=== PATIENT | female | born 1995 | race Caucasian/White ===

== ENCOUNTER 2016-10-10 09:42 | Emergency (ER) | payer OTHER ==
[2016-10-10 10:30] VITALS: BP 110/58
--- NOTE | 2016-10-10 10:47 | UC ---
Respiratory Complaint HPI - HPI Summary HPI Summary: productive cough x 5 days + chest congestion, wheezing , chills, no sore throat , + nasal congestion and sinus pressure - History of Current Complaint Chief Complaint: UCRespiratory Stated Complaint: COUGH,SINUS PRESSURE Time Seen by Provider: 10/10/16 10:31 Hx Obtained From: Patient Hx Last Menstrual Period: 09/03/16 Onset/Duration: Gradual Onset, Lasting Days - 5, Still Present Severity Initially: Moderate Severity Currently: Moderate Character: Cough: Productive - yellow Aggravating Factors: Exertion, Deep Breaths Alleviating Factors: Nothing Associated Signs And Symptoms: Positive: Wheezing, URI, Nasal Congestion, Sinus Discomfort - Allergies/Home Medications Allergies/Adverse Reactions: Allergies Allergy/AdvReac Type Severity Reaction Status Date / Time Azithromycin [From Zithromax] AdvReac GI Upset Verified 10/10/16 10:27 Home Medications: Home Medications Albuterol HFA INHALER* [Ventolin HFA Inhaler*] 1 - 2 puff INH Q4H PRN 10/10/16 [ History Confirmed 10/10/16] Fluticasone HFA 110 mcg(NF) [Flovent HFA 110 mcg(NF)] 2 puff INH DAILY 10/10/16 [History Confirmed 10/10/16] Multivitamins/Minerals TAB* [Thera M Plus TAB*] 1 tab PO DAILY 10/10/16 [ History Confirmed 10/10/16] traZODone TAB* [Desyrel TAB*] 200 mg PO BEDTIME 10/10/16 [History Confirmed ] PMH/Surg Hx/FS Hx/Imm Hx Endocrine History Of: Denies: Diabetes, Thyroid Disease, Hyperthyroidism, Hypothyroidism, Dyslipidemia Cardiovascular History Of: Denies: Cardiac Disorders, Hypertension, Pacemaker/ICD, Myocardial Infarction , Congestive Heart Failure, Atrial Fibrillation, Deep Vein Thrombosis, Bleeding Disorders Respiratory History Of: Reports: Asthma, Bronchitis Denies: COPD, Pneumonia, Pulmonary Embolism GI/ History Of: Denies: Gastroesophageal Reflux, Ulcer, Gastrointestinal Bleed, Gall Bladder Disease, Kidney Stones, Diverticulitis, Renal Disease, Urosepsis Neurological History Of: Denies: TIA, CVA, Dementia, Seizures, Migraine Psychological History Of: Reports: Depression Denies: Anxiety, Bipolar Disorder, Schizophrenia, Post Traumatic Stress Disorder Cancer History Of: Denies: Lung Cancer, Colorectal Cancer, Breast Cancer, Prostate Cancer, Cervical Cancer Other History Of: Negative For: HIV, Hepatitis B, Hepatitis C - Surgical History Surgical History: Yes Surgery Procedure, Year, and Place: T&A. TUBES IN EARS AGE 1. MIGRAINES - Family History Known Family History: Positive: None Negative: Diabetes Family History: no cardio-vascular issues in family lineage - Social History Alcohol Use: Occasionally Substance Use Type: None Smoking Status (MU): Heavy Every Day Tobacco Smoker Type: Cigarettes Amount Used/How Often: 1/2 PPD Length of Time of Smoking/Using Tobacco: 1 YR - Immunization History Most Recent Influenza Vaccination: Not the Season Review of Systems Constitutional: Chills, Fatigue Skin: Negative Eyes: Negative ENT: Nasal Discharge Respiratory: Cough Cardiovascular: Negative Gastrointestinal: Negative Genitourinary: Negative All Other Systems Reviewed And Are Negative: Yes Physical Exam Triage Information Reviewed: Yes Appearance: Well-Appearing, No Pain Distress, Well-Nourished Vital Signs: Initial Vital Signs Temp 98 F 10/10/16 10:22 Pulse 80 10/10/16 10:22 Resp 16 10/10/16 10:22 BP 110/58 10/10/16 10:22 Pulse Ox 99 10/10/16 10:22 Vital Signs Reviewed: Yes Eyes: Positive: Conjunctiva Clear ENT: Positive: Normal ENT inspection, Hearing grossly normal, Pharyngeal erythema, Nasal congestion, Nasal drainage Neck exam: Normal Neck: Positive: Supple, Nontender, No Lymphadenopathy Respiratory: Positive: Chest non-tender, No respiratory distress, No accessory muscle use, Wheezing Cardiovascular: Positive: RRR, No Murmur, Pulses Normal UC Diagnostic Evaluation - Laboratory O2 Sat by Pulse Oximetry: 99 Respiratory Course/Dx - Differential Dx/Diagnosis Provider Diagnoses: bronchitis Discharge - Discharge Plan Condition: Stable Disposition: HOME Prescriptions: Amoxicillin/Clavulanate TAB* [Augmentin TAB 875*] 875 mg PO BID #20 tab Guaifenesin-Codeine [Cheratussin AC] 10 ml PO Q8H #120 ml MDD 30 ML Ibuprofen TAB* [Motrin TAB* 600 MG] 600 mg PO Q8H PRN #20 tab PRN Reason: Fever Patient Education Materials: Acute Bronchitis (ED) Referrals: Lupe Lopez PA [Primary Care Provider] - 7 Days
== END 2016-10-10 11:00 | disposition home or self-care (01) ==
LOC: UCCORT 09:42
DX: J40 Bronchitis, not specified as acute or chronic (principal); Z32.02 Encounter for pregnancy test, result negative; Z88.1 Allergy status to other antibiotic agents; F17.210 Nicotine dependence, cigarettes, uncomplicated
CPT/HCPCS: 81025; 99212; G0463

== ENCOUNTER 2016-10-23 09:40 | Emergency (ER) | payer SELFPAY ==
[2016-10-23 11:22] VITALS: BP 112/63
--- NOTE | 2016-10-23 12:09 | RAD ---
INDICATION: Several weeks cough. Bronchitis. COMPARISON: June 12, 2014 TECHNIQUE: Dual energy PA and routine lateral views of the chest were obtained. REPORT: Clear lungs and pleural spaces. Negative for pneumothorax. The heart, pulmonary vasculature, and mediastinal contours are unremarkable. Unremarkable osseous structures and soft tissue contours. IMPRESSION: No evidence for acute intrathoracic disease.
--- NOTE | 2016-10-23 12:11 | UC ---
Respiratory Complaint HPI - HPI Summary HPI Summary: coughing, wheezing, tightness in chest since Oct 04. Seen here on the , Rx course Augmentin and albuterol inhaler/nebulizer. She feels liek she is still wheezing and coughing up phlegm. No fever. No vomiting or diarrhea. She does smoke cigarettes. Out of her albuterol. Wants prednisone, which has helped in past. - History of Current Complaint Chief Complaint: UCRespiratory Stated Complaint: RECHECK BRONCHITIS Time Seen by Provider: 10/23/16 11:32 Hx Obtained From: Patient Hx Last Menstrual Period: 10/16/16 Onset/Duration: Gradual Onset Timing: Constant Severity Initially: Moderate Severity Currently: Moderate Character: Sputum Description: - yellow Aggravating Factors: Exertion, Recumbent Position Alleviating Factors: Bronchodilator Associated Signs And Symptoms: Positive: Dyspnea, Wheezing, URI, Nasal Congestion, Hoarseness, Sinus Discomfort. Negative: Fever, Chills, Hemoptysis - Risk Factors Pulmonary Embolism Risk Factors: Negative Cardiac Risk Factors: Negative Pseudomonas Risk Factors: Negative Tuberculosis Risk Factors: Negative - Allergies/Home Medications Allergies/Adverse Reactions: Allergies Allergy/AdvReac Type Severity Reaction Status Date / Time Azithromycin [From Zithromax] AdvReac GI Upset Verified 10/23/16 11:15 Home Medications: Home Medications guaiFENesin ER TAB [Mucinex*] 600 mg PO BID PRN 10/23/16 [History Confirmed 05/01] PMH/Surg Hx/FS Hx/Imm Hx Endocrine History Of: Denies: Diabetes, Thyroid Disease, Hyperthyroidism, Hypothyroidism, Dyslipidemia Cardiovascular History Of: Denies: Cardiac Disorders, Hypertension, Pacemaker/ICD, Myocardial Infarction , Congestive Heart Failure, Atrial Fibrillation, Deep Vein Thrombosis, Bleeding Disorders Respiratory History Of: Reports: Asthma, Bronchitis Denies: COPD, Pneumonia, Pulmonary Embolism GI/ History Of: Denies: Gastroesophageal Reflux, Ulcer, Gastrointestinal Bleed, Gall Bladder Disease, Kidney Stones, Diverticulitis, Renal Disease, Urosepsis Neurological History Of: Denies: TIA, CVA, Dementia, Seizures, Migraine Psychological History Of: Reports: Depression Denies: Anxiety, Bipolar Disorder, Schizophrenia, Post Traumatic Stress Disorder Cancer History Of: Denies: Lung Cancer, Colorectal Cancer, Breast Cancer, Prostate Cancer, Cervical Cancer Other History Of: Negative For: HIV, Hepatitis B, Hepatitis C - Surgical History Surgical History: Yes Surgery Procedure, Year, and Place: T&A. TUBES IN EARS AGE 1. MIGRAINES - Family History Known Family History: Positive: None Negative: Diabetes Family History: no cardio-vascular issues in family lineage - Social History Occupation: Employed Full-time Lives: With Family Alcohol Use: Occasionally Substance Use Type: None Smoking Status (MU): Heavy Every Day Tobacco Smoker Type: Cigarettes Amount Used/How Often: 1/2 PPD Length of Time of Smoking/Using Tobacco: 1 YR - Immunization History Most Recent Influenza Vaccination: Not the Season Review of Systems Constitutional: Fatigue Skin: Negative Eyes: Negative ENT: Ear Ache, Nasal Discharge Respiratory: Shortness Of Breath, Cough Cardiovascular: Negative Gastrointestinal: Negative Genitourinary: Negative Motor: Negative Neurovascular: Negative Musculoskeletal: Negative Neurological: Negative Psychological: Negative All Other Systems Reviewed And Are Negative: Yes Physical Exam Triage Information Reviewed: Yes Appearance: Well-Appearing, No Pain Distress, Well-Nourished Vital Signs: Initial Vital Signs Temp 97.7 F 10/23/16 11:18 Pulse 83 10/23/16 11:18 Resp 18 10/23/16 11:18 BP 112/63 10/23/16 11:18 Pulse Ox 95 10/23/16 11:18 Vital Signs Reviewed: Yes Eye Exam: Normal Eyes: Positive: Conjunctiva Clear ENT: Positive: Pharynx normal, Nasal congestion, TMs normal, Muffled/hoarse voice - hoarse. Negative: Tonsillar swelling, Tonsillar exudate, Trismus Neck exam: Normal Neck: Positive: Supple Respiratory: Positive: No respiratory distress, No accessory muscle use, Wheezing - diffuse, mild, end-expiratory. Negative: Rhonchi, Stridor Cardiovascular Exam: Normal Musculoskeletal Exam: Normal Neurological Exam: Normal Psychological Exam: Normal Skin Exam: Normal UC Diagnostic Evaluation - Laboratory O2 Sat by Pulse Oximetry: 95 Diagnostic Studies Comment: CXR neg Respiratory Course/Dx - Differential Dx/Diagnosis Differential Diagnosis/HQI/PQRI: Asthma, Bronchitis, Lower Resp Infection Provider Diagnoses: URI with bronchospasm Discharge - Discharge Plan Condition: Stable Disposition: HOME Prescriptions: Albuterol 2.5MG/3ML (0.083%)* [Ventolin 2.5 MG/3 ML NEB.LEANNE*] 2.5 mg INH Q4H # 30 neb.leanne Albuterol HFA INHALER* [Ventolin HFA Inhaler*] 1 - 2 puff INH Q4H PRN #1 mdi PRN Reason: Wheezing DOXYcycline CAP(*) [DOXYcycline 100MG CAP(*)] 100 mg PO BID #20 cap predniSONE TAB* [Deltasone TAB*] 20 mg PO DAILY #14 tab Patient Education Materials: Bronchospasm (ED) Referrals: Lupe Lopez PA [Primary Care Provider] -
== END 2016-10-23 12:11 | disposition home or self-care (01) ==
LOC: UCCORT 09:40
DX: J06.9 Acute upper respiratory infection, unspecified (principal); J98.01 Acute bronchospasm; Z88.1 Allergy status to other antibiotic agents; F17.210 Nicotine dependence, cigarettes, uncomplicated
CPT/HCPCS: 71020; 99212; G0463

== ENCOUNTER 2017-09-20 14:35 | Emergency (ER) | payer OTHER ==
--- OUTSIDE RECORDS SUMMARY | 2017-09-20 15:51 | XMS REPORT ---
:1995 External Reference #:[id number] [facility] Address [address] [place] [address] Phone [phone] Care Team Providers Name Role Phone [facility] Primary Care Physician Unavailable Payers Type Date Identification Numbers Payment Provider Subscriber Commercial Effective: Policy Number: [id number] [facility] PIPO Plasencia 2017 Group Name: [employer]. [address] PayID: [id number] [place] [address] Medicaid Policy Number: [id number] Medicaid -Cecilia Plasencia PayID: [id number] [address] [place] [phone] Medicaid Expires: 2015 Policy Number: Medicaid FPBP ([facility]) Olga Plasencia [id number] PayID: [id number] [address] [place] [phone] Problems Description No Information Family History Date Family Member(s) Problem(s) Comments Father Unknown accidental befor Olga was born Mother Alive Mother Hypercholesterolemia Mother Hypertension possible Social History Type Date Description Comments Education Highest level completed, 1 year of college Marital Status Legal Status: Never ETOH Use Denies alcohol use Recreational Drug Use Denies Drug Use Smoking Patient is a former smoker Recreational Drug Use Teaching provided regarding Naloxone/Narcan Training Available At [facility] [employer] 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 Condom Use Always Contraceptive Methods Past methods include depo-provera injection Contraceptive Methods Past methods include oral contraceptives Age 1st [place] 14 Years Old STD's Negative For No STD History Allergies, Adverse Reactions, Alerts Date Description Reaction Status Severity Comments 02/21/2015 NKDA active 02/21/2015 Cats active 02/21/2015 Dogs active 02/21/2015 Environmental active Medications Medication Date Status Form Strength Qnty SIG Indications Ordering Provider Econtra Ez 09/10/ Active Tablets 1.5mg 1tabs take one tab Z30.012 In [facility] 2016 now, call for MD Vincent new dose if vomiting occurs within 1 hour of taking Econtra Ez 09/10/ Active Tablets 1.5mg 1tabs prn dose for Z30.012 In 2016 use within 5 MD Vincent days of unprotected sex Propranolol 00/ Active Unknown HCL ER 0000 Econtra Ez 09/12/ Hx Tablets 1.5mg 1tabs Z30.012 Mai 2014 - Servies, ORDER DESK CLERK 2016 Ortho-Cyclen 09/20/ Hx Tablets 0.25-35mg- 84tabs 1 by mouth Mai () 2014 - mcg every day Servies, ORDER DESK CLERK 2016 Medications Administered in Office Medication Date Status Form Strength Qnty SIG Indications Ordering Provider Contraceptive 09/10/ Administered Injection Elsy Pills 2016 Hector Zee ORDER DESK CLERK Emergency 09/10/ Administered Injection Elsy Contraceptive 2016 RYAN Zee Emergency 09/12/ Administered Injection [place] Contraceptive 2014 [place] Contraceptive 02/17/ Administered Injection Cecilia Pills 2014 [facility] Contraceptive 11/11/ Administered Injection [place] Pills 2014 [facility] Contraceptive 07/12/ Administered Injection Holley Pills 2013 [place] Control Vital Signs Date Vital Result Comment 09/10/2017 BP Systolic 105 mmHg BP Diastolic 71 mmHg Height 66.5 inches 5'6.50" Weight 230.00 lb BMI (Body Mass Index) 36.6 kg/m2 Results Test Date Test Result H/L Range Note Laboratory test finding 09/10/2017 Test Urine..... negative Procedures Description No Information Plan of Care 09/10/2017 - Elsy Zee NPZ30.011 Encounter for initial prescription of contraceptive pillsComments:Olga is waiting for her Nexplanon to come in at Dr. mSith office. They had [facility] on 09/07 She is exclusively breast feeding but is concerned that she will become her son is 7 weeks old. I gave her a months worth of Micronor while she is waiting for Nexplanon, I offered to insert Nexplanon today but she declined since she already ordered one through Dr. Smith's office. So today I gave her ECPand she will start Micronor I advised her that it is not effective for 7 days and to use condoms from start to finish. I also supplied her with condoms. I also told her is something happens and her Nexplanon does not arrive at dr. Smith's we will be happy to do a same day insert here.Z30.012 Encounter for prescription of emergency contraceptionNew Medication:Econtra Ez 1.5 mgEcontra Ez 1.5 mg
--- NOTE | 2017-09-20 15:53 | UC ---
Respiratory Complaint HPI - HPI Summary HPI Summary: 22 y/o female presents to the urgent care c/o sinus congestions with green discharge, sore throat and body aches for the past 2 days. Pt also states mild dry cough. She is breast feeding her 2 month old baby. She has been Tx w/ Augmentin PO for sinusitis in the past 2 months. Last dose of ABX was 2016. However she thinks her sinusitis has not completely resolved since she has sinus pain and REAL. Pain is 3/10. Pt denies fever, SOB, chest pain, N/V/D, - History of Current Complaint Stated Complaint: UPPER RESPIRATORY Time Seen by Provider: 09/20/17 15:50 Hx Obtained From: Patient Hx Last Menstrual Period: 10/16/16 ?: No - Pt is Onset/Duration: Gradual Onset, Lasting Weeks - 2 months, Worse Since - 2 days Timing: Constant Severity Initially: Mild Severity Currently: Mild Pain Intensity: 2 Pain Scale Used: 0-10 Numeric Character: Cough: Nonproductive Aggravating Factors: Allergens Alleviating Factors: Other - antibiotics Related History: Seasonal Allergies - Risk Factors Pulmonary Embolism Risk Factors: Negative Cardiac Risk Factors: Negative Pseudomonas Risk Factors: Negative Tuberculosis Risk Factors: Negative - Allergies/Home Medications Allergies/Adverse Reactions: Allergies Allergy/AdvReac Type Severity Reaction Status Date / Time Azithromycin [From Zithromax] AdvReac GI Upset Verified 09/20/17 15:56 Home Medications: Home Medications Docusate CAP* [Colace Cap*] 100 mg PO DAILY 09/20/17 [History Confirmed 09/20/17 ] PMH/Surg Hx/FS Hx/Imm Hx Previously Healthy: Yes Cardiovascular History: Hypertension Respiratory History: Asthma Other History Of: Negative For: HIV, Hepatitis B, Hepatitis C - Surgical History Surgical History: Yes Surgery Procedure, Year, and Place: T&A. TUBES IN EARS - Family History Known Family History: Positive: Hypertension, Diabetes Family History: no cardio-vascular issues in family lineage - Social History Occupation: Unemployed Lives: With Family Alcohol Use: None Substance Use Type: None Smoking Status (MU): Former Smoker Type: Cigarettes Amount Used/How Often: 1/2 PPD Length of Time of Smoking/Using Tobacco: 1 YR When Did the Patient Quit Smoking/Using Tobacco: 12/2016 - Immunization History Most Recent Influenza Vaccination: Not the Season Review of Systems Constitutional: Negative Skin: Negative Eyes: Negative ENT: Sore Throat, Nasal Discharge, Sinus Congestion, Sinus Pain/Tenderness Respiratory: Cough - dry Cardiovascular: Negative Gastrointestinal: Negative Genitourinary: Negative Motor: Negative Neurovascular: Negative Musculoskeletal: Negative Neurological: Headache Psychological: Negative Is Patient Immunocompromised?: No All Other Systems Reviewed And Are Negative: Yes Physical Exam Triage Information Reviewed: Yes - Additional Comments VITAL SIGNS: Reviewed. GENERAL: Patient is a well developed and nourished female who is sitting comfortable in the examining table. Patient is not in any acute respiratory distress. HEAD AND FACE: No signs of trauma. No ecchymosis, hematomas or skull depressions. B/L maxillary sinus tenderness. EYES: PERRLA, EOMI x 2, No injected conjunctiva, no nystagmus. No photophobia. EARS: Hearing grossly intact. Ear canals and tympanic membranes are within normal limits. Nose, edematous and erythematous nasal mucosa with clear nasal discharge. MOUTH: Positive pharynx with erythema, no exudates, no palatal petechiae. No B/ L tonsild. Uvula in midline. NECK: Supple, trachea is midline, Positive anterior cervical lymphadenopathy, no JVD, no carotid bruit, no c-spine tenderness, neck with full ROM. No meningeal signs, no Kernig's or brudzinskis signs. CHEST: Symmetric, no tenderness at palpation LUNGS: Clear to auscultation bilaterally. No wheezing or crackles. CVS: Regular rate and rhythm, S1 and S2 present, no murmurs or gallops appreciated. ABDOMEN: Soft, non-tender. No signs of distention. No rebound no guarding, and no masses palpated. Bowel sounds are normal. EXTREMITIES: FROM in all major joints, no edema, no cyanosis or clubbing. NEURO: Alert and oriented x 3. No acute neurological deficits. Speech is normal and follows commands. SKIN: Dry and warm Respiratory Course/Dx - Course Course Of Treatment: 22 y/o female presents to the urgent care c/o sinus congestions with green discharge, sore throat and body aches for the past 2 days. Pt also states mild dry cough. She is breast feeding her 2 month old baby. She has been Tx w/ Augmentin PO for sinusitis in the past 2 months. Last dose of ABX was 08/29/2017. However she thinks her sinusitis has not completely resolved since she has sinus pain and REAL. Pain is 3/10. Pt denies fever, SOB, chest pain, N/V/D. Hx obtained. Rapid strep ordered, result: negative.Influenza A&B ordered: result: negative. Pt with allergic rhintis as per Dr Mora. Pt Rx Loratadine PO to alleviates symptoms. Advised on hand washing, continue using Flonase she has at home, use saline drops to clear sinuses. Pt advised avoid allergens , rest, increase fluid intake, eat well. If symptoms do not improve or worsen advised to return to the urgent care or f/u with her PCP for further evaluation and treatment. Pt understood and agreed with plan of care. - Differential Dx/Diagnosis Differential Diagnosis/HQI/PQRI: Asthma, Bronchitis, Influenza, Laryngitis, Sinusitis, Other - pharyngitis, allergic rhinitis Provider Diagnoses: 1- Allergic rhinitis Discharge - Discharge Plan Condition: Stable Disposition: HOME Prescriptions: LoraTADine TAB(NF) [Claritin 10 MG TAB(NF)] 10 mg PO DAILY #30 tab Patient Education Materials: Allergic Rhinitis (ED) Referrals: Renetta Mcelroy MD [Primary Care Provider] - Additional Instructions: 1-Take Loratadine PO as directed to alleviates sinus congestion 2-Return to the clinic or PCP if symptoms do not improve for further management and treatment
[2017-09-20 15:56] VITALS: BP 110/65
== END 2017-09-20 17:00 | disposition home or self-care (01) ==
LOC: UCCORT 14:35
DX: J30.9 Allergic rhinitis, unspecified (principal); I10 Essential (primary) hypertension; Z87.891 Personal history of nicotine dependence; Z88.1 Allergy status to other antibiotic agents
CPT/HCPCS: 87502; 87651; 99212; G0463

== ENCOUNTER 2017-09-22 09:12 | Emergency (ER) | payer OTHER | END 2017-09-22 10:25 | disposition left against medical advice (07) | LOC: UCCORT 09:12 | DX: R09.89 Other specified symptoms and signs involving the circulatory and respiratory systems (principal); J02.9 Acute pharyngitis, unspecified; J34.89 Other specified disorders of nose and nasal sinuses; Z53.21 Procedure and treatment not carried out due to patient leaving prior to being seen by health care provider ==

== ENCOUNTER 2017-10-27 08:19 | Emergency (ER) | payer OTHER | END 2017-10-27 09:46 | disposition left against medical advice (07) | LOC: UCCORT 08:19 | DX: R52 Pain, unspecified (principal); R11.0 Nausea; Z53.21 Procedure and treatment not carried out due to patient leaving prior to being seen by health care provider ==

== ENCOUNTER 2018-03-18 09:09 | Emergency (ER) | payer OTHER ==
[2018-03-18 09:41] VITALS: BP 114/73
[2018-03-18] MEDS ORDERED: Ibuprofen TAB* 600 MG PO ONE (10:25)
--- NOTE | 2018-03-18 10:26 | UC ---
Ear Complaint HPI - HPI Summary HPI Summary: patient had right ear pain seen pcp rx with ofloxin drops---now has developed left ear pain and pain radiating in to the left side of her throat,hearing is muffled - History of Current Complaint Chief Complaint: UCEar Stated Complaint: SINUSES,ST,EARS Time Seen by Provider: 03/18/18 10:15 Hx Obtained From: Patient Hx Last Menstrual Period: 10/16/16 ?: No - Breast Feeding Onset/Duration: Sudden Onset Pain Intensity: 7 Pain Scale Used: 0-10 Numeric Aggravating Factors: Nothing Alleviating Factors: Nothing - Allergies/Home Medications Allergies/Adverse Reactions: Allergies Allergy/AdvReac Type Severity Reaction Status Date / Time azithromycin AdvReac GI Upset Verified 03/18/18 09:37 Home Medications: Home Medications Ofloxacin 0.3% OTIC.LEANNE* [Floxin 0.3% OTIC.LEANNE*] 5 drop .SEE ORDER TID 03/18/18 [History Confirmed 03/18/18] PMH/Surg Hx/FS Hx/Imm Hx Previously Healthy: No Respiratory History: Asthma - mild intermittent Neurological History: Migraine Other History Of: Negative For: HIV, Hepatitis B, Hepatitis C - Surgical History Surgical History: Yes Surgery Procedure, Year, and Place: T&A. TUBES IN EARS - Family History Known Family History: Positive: None, Hypertension, Diabetes Family History: no cardio-vascular issues in family lineage - Social History Occupation: Employed Full-time Lives: With Family Alcohol Use: None Substance Use Type: None Smoking Status (MU): Former Smoker Type: Cigarettes Amount Used/How Often: 1/2 PPD Length of Time of Smoking/Using Tobacco: 1 YR When Did the Patient Quit Smoking/Using Tobacco: 12/2016 - Immunization History Most Recent Influenza Vaccination: Not the Season Review of Systems Constitutional: Negative Skin: Negative Eyes: Negative ENT: Sore Throat - left side of throat, Ear Ache - left Respiratory: Negative Cardiovascular: Negative Gastrointestinal: Negative Genitourinary: Negative Motor: Negative Neurovascular: Negative Musculoskeletal: Negative Neurological: Negative Psychological: Negative Is Patient Immunocompromised?: No All Other Systems Reviewed And Are Negative: Yes Physical Exam Triage Information Reviewed: Yes Appearance: Well-Appearing, No Pain Distress, Well-Nourished Vital Signs: Initial Vital Signs Temp 98.4 F 03/18/18 09:34 Pulse 66 03/18/18 09:34 Resp 17 03/18/18 09:34 BP 114/73 03/18/18 09:34 Pulse Ox 98 03/18/18 09:34 Vital Signs Reviewed: Yes Eye Exam: Normal Eyes: Positive: Conjunctiva Clear ENT Exam: Normal ENT: Positive: Normal ENT inspection, Hearing grossly normal, Pharynx normal, TM bulging - left, TM dull - left, TM red - right, Uvula midline. Negative: Nasal congestion, Tonsillar swelling, Trismus, Muffled voice, Hoarse voice, Dental tenderness, Sinus tenderness Dental Exam: Normal Neck exam: Normal Neck: Positive: Supple, Nontender, No Lymphadenopathy Respiratory Exam: Normal Respiratory: Positive: Chest non-tender, Lungs clear, Normal breath sounds, No respiratory distress, No accessory muscle use Cardiovascular Exam: Normal Cardiovascular: Positive: RRR, No Murmur, Pulses Normal, Brisk Capillary Refill Musculoskeletal Exam: Normal Musculoskeletal: Positive: Strength Intact, ROM Intact, No Edema Neurological Exam: Normal Neurological: Positive: Alert, Muscle Tone Normal Psychological Exam: Normal Skin Exam: Normal Ear Complaint Course/Dx - Course Course Of Treatment: Patient will start Flonase will add Zyrtec-D, amoxicillin increase fluids Tylenol ibuprofen for pain follow with PCP when necessary - Differential Dx/Diagnosis Provider Diagnoses: left otitis [place] Discharge - Sign-Out/Discharge Documenting (check all that apply): Discharge/Admit/Transfer - Discharge Plan Condition: Stable Disposition: HOME Prescriptions: Amoxicillin PO (*) [Amoxicillin 875 MG (*)] 875 mg PO BID #20 tab Ibuprofen TAB* [Motrin TAB* 600 MG] 600 mg PO Q6H PRN #30 tab PRN Reason: Pain Loratadine/Pseudoephedrine [Claritin-D 24 Hour Tablet] 1 each PO DAILY #30 tab.er.24h Patient Education Materials: Ear Infection (ED), How to Use Nasal [place] (ED) Referrals: Renetta Mcelroy MD [Primary Care Provider] - If Needed - Billing Disposition and Condition Condition: STABLE Disposition: Home
== END 2018-03-18 10:35 | disposition home or self-care (01) ==
LOC: UCCORT 09:09
DX: H66.92 Otitis media, unspecified, left ear (principal); Z88.1 Allergy status to other antibiotic agents; Z87.891 Personal history of nicotine dependence
CPT/HCPCS: 99212; A9270-GY; G0463

== ENCOUNTER 2018-09-02 18:08 | Emergency (ER) | payer OTHER ==
[2018-09-02 18:39] VITALS: BP 115/69
--- NOTE | 2018-09-02 18:43 | UC ---
Throat Pain/Nasal Jimmy HPI - HPI Summary HPI Summary: Pt c/o ST X 3 days. 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 - History of Current Complaint Stated Complaint: ST Time Seen by Provider: 09/02/18 18:27 Hx Obtained From: Patient Hx Last Menstrual Period: 08/03/18 ?: No Onset/Duration: Sudden Onset Severity: Moderate Pain Intensity: 8 Cough: None Associated Signs & Symptoms: Positive: Dysphagia - Epiglottits Risk Factors Epiglottis Risk Factors: Negative - Allergies/Home Medications Allergies/Adverse Reactions: Allergies Allergy/AdvReac Type Severity Reaction Status Date / Time azithromycin AdvReac GI Upset Verified 03/18/18 09:37 Home Medications: Home Medications Fiber Tab 1 dose PO DAILY 09/02/18 [History Confirmed 09/02/18] Loratadine 10 mg PO DAILY 09/02/18 [History Confirmed 09/02/18] Prednisone Script Not Taken 09/02/18 [History] PMH/Surg Hx/FS Hx/Imm Hx Previously Healthy: Yes Other History Of: Negative For: HIV, Hepatitis B, Hepatitis C - Surgical History Surgical History: Yes Surgery Procedure, Year, and Place: T&A. TUBES IN EARS - Family History Known Family History: Positive: Hypertension, Diabetes Family History: no cardio-vascular issues in family lineage - Social History Occupation: Employed Full-time Lives: With Family Alcohol Use: None Substance Use Type: None Smoking Status (MU): Former Smoker Type: Cigarettes Amount Used/How Often: 1/2 PPD Length of Time of Smoking/Using Tobacco: 1 YR Have You Smoked in the Last Year: No When Did the Patient Quit Smoking/Using Tobacco: 12/2016 - Immunization History Most Recent Influenza Vaccination: Not the Season Vaccination Up to Date: Yes Review of Systems All Other Systems Reviewed And Are Negative: Yes Constitutional: Positive: Negative Skin: Positive: Negative Eyes: Positive: Negative ENT: Positive: Sore Throat Respiratory: Positive: Negative Cardiovascular: Positive: Negative Gastrointestinal: Positive: Negative Genitourinary: Positive: Negative Motor: Positive: Negative Neurovascular: Positive: Negative Musculoskeletal: Positive: Negative Neurological: Positive: Negative Psychological: Positive: Negative Is Patient Immunocompromised?: No Physical Exam Triage Information Reviewed: Yes Appearance: Well-Appearing Vital Signs: Initial Vital Signs Temp 97.8 F 09/02/18 18:34 Pulse 69 09/02/18 18:34 Resp 14 09/02/18 18:34 BP 115/69 09/02/18 18:34 Pulse Ox 98 09/02/18 18:34 Vital Signs Reviewed: Yes Eye Exam: Normal ENT: Positive: Pharyngeal erythema Dental Exam: Normal Neck exam: Normal Respiratory Exam: Normal Cardiovascular Exam: Normal Musculoskeletal Exam: Normal Neurological Exam: Normal Psychological Exam: Normal Skin Exam: Normal Throat Pain/Nasal Course/Dx - Differential Dx/Diagnosis Differential Diagnosis/HQI/PQRI: Pharyngitis, Tonsillitis, URI Provider Diagnosis: Tonsillitis Discharge - Sign-Out/Discharge Documenting (check all that apply): Patient Departure All imaging exams completed and their final reports reviewed: No Studies - Discharge Plan Condition: Stable Disposition: HOME Prescriptions: Penicillin VK 500 MG TAB(NF) [Penicillin VK 500 mg Tab] 500 mg PO Q6H #40 tab Patient Education Materials: Tonsillitis (ED) Referrals: Renetta Mcelroy MD [Primary Care Provider] - If Needed - Billing Disposition and Condition Condition: STABLE Disposition: Home
== END 2018-09-02 18:53 | disposition home or self-care (01) ==
LOC: UCCORT 18:08
DX: J03.90 Acute tonsillitis, unspecified (principal); Z88.1 Allergy status to other antibiotic agents; Z87.891 Personal history of nicotine dependence
CPT/HCPCS: 99212; G0463

== ENCOUNTER 2018-10-01 09:19 | Emergency (ER) | payer OTHER ==
[2018-10-01 10:11] VITALS: BP 109/69
--- NOTE | 2018-10-01 10:15 | UC ---
Nausea/Vomiting/Diarrhea HPI - HPI Summary HPI Summary: 23 y/o female presents to the urgent care c/o nausea and vomiting since yesterday. Pt reports she started yesterday morning w/nausea. Pt had 6-7 episodes of vomiting since yesterday. Last episode was 1 hr ago. She has been trying to get . LMP:09/03/2018 w/ irregular menstrual cycles. Pt states mild epigastric pain 5/10 and then relief w/ vomiting. Pt denies c/o vomiting the past couple days. States today- 7-8 times today. Denies any diarrhea or fever. Is a chance of . - History of Current Complaint Chief Complaint: UCGI Stated Complaint: VOMITING Time Seen by Provider: 10/01/18 10:12 Hx Obtained From: Patient Hx Last Menstrual Period: 09/03/18 ?: No Onset/Duration: Sudden Onset, Lasting Days - 1 day, Still Present, Worse Since - today Timing: Intermittent Episodes Lasting: Severity Initially: Mild Severity Currently: Moderate Pain Intensity: 5 Pain Scale Used: 0-10 Numeric Location: Epigastric Character: Cramping Aggravating Factor(s): Food Alleviating Factor(s): Vomiting, NPO Nausea/Vomiting Presence: Nauseated, Vomiting Vomiting Frequency: Every 3-4 hours Nausea/Vomiting Duration: 12-24 hours Vomiting Characteristics: Nonbilious Diarrhea Presence: No - Risk Factors Influenza Risk Factors: Negative Surgical Obstruction Risk Factor(s): Negative - Allergies/Home Medications Allergies/Adverse Reactions: Allergies Allergy/AdvReac Type Severity Reaction Status Date / Time azithromycin AdvReac GI Upset Verified 10/01/18 10:04 Home Medications: Home Medications Aspirin/Acetaminophen/Caffeine [Excedrin Extra Strength Caplet] 2 each PO ONCE PRN 10/01/18 [History Confirmed 10/01/18] PMH/Surg Hx/FS Hx/Imm Hx Previously Healthy: Yes Respiratory History: Asthma Other History Of: Negative For: HIV, Hepatitis B, Hepatitis C - Surgical History Surgical History: Yes Surgery Procedure, Year, and Place: T&A. TUBES IN EARS - Family History Known Family History: Positive: Hypertension, Diabetes Family History: no cardio-vascular issues in family lineage - Social History Occupation: Employed Full-time Lives: With Family Alcohol Use: None Substance Use Type: None Smoking Status (MU): Former Smoker Type: Cigarettes Amount Used/How Often: 1/2 PPD Length of Time of Smoking/Using Tobacco: 1 YR Have You Smoked in the Last Year: No When Did the Patient Quit Smoking/Using Tobacco: 12/2016 - Immunization History Most Recent Influenza Vaccination: Not the Season Vaccination Up to Date: Yes Review of Systems All Other Systems Reviewed And Are Negative: Yes Constitutional: Positive: Negative Skin: Positive: Negative Eyes: Positive: Negative ENT: Positive: Negative Respiratory: Positive: Negative Cardiovascular: Positive: Negative Gastrointestinal: Positive: Abdominal Pain - epigastric, Vomiting, Nausea Genitourinary: Positive: Negative Motor: Positive: Negative Neurovascular: Positive: Negative Musculoskeletal: Positive: Negative Neurological: Positive: Negative Psychological: Positive: Negative Is Patient Immunocompromised?: No Physical Exam - Summary Physical Exam Summary: Vital Signs Reviewed: Yes General:Patient is a well developed and nourished obese female who is sitting comfortable in the examining table. Patient is not in any acute respiratory distress. Eyes: Positive: Conjunctiva Clear - PERRLA, EOMI, fundi grossly normal ENT: Positive: Normal ENT inspection, Hearing grossly normal, Pharynx normal, TMs normal Neck: Positive: Supple, Nontender, No Lymphadenopathy Respiratory: Positive: Chest non-tender, Lungs clear, Normal breath sounds, No respiratory distress Cardiovascular: Positive: RRR,S1 and S2 present, No Murmur, Pulses Normal, Brisk Capillary Refill Abdomen Description: Positive: Nontender, Other: - Abd: Flat with no distention. No surface trauma, scars, incisions. hyperactive bowel sounds present in all four quadrants. No tenderness, guarding, rigidity to palpation. No masses palpated, no pulsation in epigastric area. No organomegaly. Negative [place] signs. No periumbilical tenderness. No rebound in the lower quadrants. NT over McBurneys point. Good femoral pulses bilaterally. No hernia noted. No CVAT bilaterally Musculoskeletal: Positive: Strength Intact, ROM Intact, No Edema,FROM in all major joints, no edema, no cyanosis or clubbing. Neuro: Alert and oriented x 3. No acute neurological deficits. Speech is normal. Psychological: WNL Skin: Dry and warm Triage Information Reviewed: Yes Vital Signs: Initial Vital Signs Temp 98.1 F 10/01/18 10:06 Pulse 102 10/01/18 10:06 Resp 16 10/01/18 10:06 BP 109/69 10/01/18 10:06 Pulse Ox 97 10/01/18 10:06 Naus/Vom/Diarrhea Course/Dx - Course Course Of Treatment: Pt most likely with a gastroenteritis. PE: WNL. UA: +2+ leukoesteraces, test: negative. Pt given at the clinic Zofran PO and Famotidine to alleviate vomiting by the nurse. Pt felt better after 20 min. Pt Rx Zofran PO for Nausea and vomiting, Also Famotidine PO to alleviate symptoms. Ptadvised to increase fluid intake, eat soft meals, rest. However if symptoms worsen and abdominal pain develops to go Immediately to the ER for further management. Pt explained D/C instructions. Pt understood and agreed w/ plan of care. Pt left the clinic ambulating, A&OX3 - Differential Dx/Diagnosis Differential Diagnoses - Female: Appendicitis, , Gerd, Gastroenteritis (Viral), Gastroenteritis (Bacterial), Vomiting, Diarrhea, Peptic Ulcer Disease, Gastritis Provider Diagnosis: Nausea and vomiting Condition At Discharge: Stable Discharge - Sign-Out/Discharge Documenting (check all that apply): Patient Departure - D/C home All imaging exams completed and their final reports reviewed: No Studies - Discharge Plan Condition: Stable Disposition: HOME Prescriptions: Famotidine TAB* [Pepcid 20 MG TAB*] 20 mg PO DAILY #30 tab Ondansetron ODT TAB* [Zofran 4 MG Odt TAB*] 4 mg PO Q6H PRN #12 tab.odt PRN Reason: Vomiting Patient Education Materials: Acute Nausea and Vomiting (ED) Forms: *Work Release Referrals: Renetta Mcelroy MD [Primary Care Provider] - 2 Days Additional Instructions: 1- Please increase fluid intake by taking Pedialyte OTC or Gatorade. Eat small portions of soft meals, rest, avoid strenuous exercise. 2-Take Zofran PO as directed to alleviate Nausea and vomiting 3- If he develops fever or abdominal pain w/ your vomiting go immediately to the ER, otherwise f/u with your PCP if vomiting is not resolving in 2-3 days for further evaluation and treatment 4- regnancy test was negative. UA was positive for leukoesterases. Urine was sent to lab to r/o any abnormality. You will be notified - Billing Disposition and Condition Condition: STABLE Disposition: Home
[2018-10-01] MEDS: Famotidine TAB* 20 MG PO ONE (10:49)
[2018-10-01] MEDS: Ondansetron ODT TAB* 4 MG PO ONE (10:49)
== END 2018-10-01 11:16 | disposition home or self-care (01) ==
LOC: UCCORT 09:19
DX: R11.2 Nausea with vomiting, unspecified (principal); Z88.1 Allergy status to other antibiotic agents; Z87.891 Personal history of nicotine dependence
CPT/HCPCS: 81003; 84702; 87086; 99212; A9270-GY; G0463

== ENCOUNTER 2018-10-27 12:19 | Emergency (ER) | payer OTHER ==
[2018-10-27 12:48] VITALS: BP 114/65
--- NOTE | 2018-10-27 12:55 | UC ---
UC General HPI - HPI Summary HPI Summary: last pm sudden headache, body aches, cough, chills and sore throat but the throat has since resolved. 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 + hx asthma - History of Current Complaint Chief Complaint: UCRespiratory Stated Complaint: ACHES,ST,CONGESTION Time Seen by Provider: 10/27/18 12:41 Hx Obtained From: Patient Hx Last Menstrual Period: 09/24/18 Onset/Duration: Sudden Onset Timing: Constant Pain Intensity: 5 Associated Signs & Symptoms: Negative: Diarrhea, Vomiting - Allergy/Home Medications Allergies/Adverse Reactions: Allergies Allergy/AdvReac Type Severity Reaction Status Date / Time azithromycin AdvReac GI Upset Verified 10/27/18 12:38 PMH/Surg Hx/FS Hx/Imm Hx Respiratory History: Asthma Neurological History: Migraine Other History Of: Negative For: HIV, Hepatitis B, Hepatitis C - Surgical History Surgical History: Yes Surgery Procedure, Year, and Place: T&A. TUBES IN EARS - Family History Known Family History: Positive: None, Hypertension, Diabetes Family History: no cardio-vascular issues in family lineage - Social History Alcohol Use: None Substance Use Type: None Smoking Status (MU): Former Smoker Type: Cigarettes Amount Used/How Often: 1/2 PPD Length of Time of Smoking/Using Tobacco: 1 YR Have You Smoked in the Last Year: No When Did the Patient Quit Smoking/Using Tobacco: 12/2016 - Immunization History Most Recent Influenza Vaccination: Not the Season Vaccination Up to Date: Yes Review of Systems All Other Systems Reviewed And Are Negative: Yes Constitutional: Positive: Chills Skin: Positive: Negative Eyes: Positive: Negative ENT: Positive: Sore Throat Respiratory: Positive: Cough Cardiovascular: Positive: Negative Gastrointestinal: Positive: Negative Genitourinary: Positive: Negative Motor: Positive: Negative Neurovascular: Positive: Negative Musculoskeletal: Positive: Myalgia Neurological: Positive: Headache Psychological: Positive: Negative Physical Exam Triage Information Reviewed: Yes Appearance: Well-Appearing Vital Signs: Initial Vital Signs Temp 98.2 F 10/27/18 12:41 Pulse 72 10/27/18 12:41 Resp 16 10/27/18 12:41 BP 114/65 10/27/18 12:41 Pulse Ox 100 10/27/18 12:41 Vital Signs Reviewed: Yes Eyes: Positive: Conjunctiva Clear ENT: Positive: Pharynx normal, TMs normal. Negative: Nasal congestion, Nasal drainage Neck: Positive: Supple, Nontender, No Lymphadenopathy Respiratory: Positive: Lungs clear, Normal breath sounds Cardiovascular: Positive: RRR, No Murmur Abdomen Description: Positive: Nontender, No Organomegaly, Soft Bowel Sounds: Positive: Present Musculoskeletal: Positive: ROM Intact Neurological: Positive: Alert Psychological: Positive: Age Appropriate Behavior Skin Exam: Normal Diagnostics - Laboratory Diagnostic Studies Completed/Ordered: rapid strep/flu=neg Course/Dx - Course Course Of Treatment: s/s's c/w local influenza. hx asthma thus Tamiflu offered. - Diagnoses Provider Diagnosis: Influenza-like illness Discharge - Sign-Out/Discharge Documenting (check all that apply): Patient Departure All imaging exams completed and their final reports reviewed: No Studies - Discharge Plan Condition: Stable Disposition: HOME Prescriptions: Oseltamivir CAP* [Tamiflu CAP*] 75 mg PO BID 5 Days #10 cap Patient Education Materials: Influenza (DC) Forms: *Work Release Referrals: Renetta Mcelroy MD [Primary Care Provider] - 5 Days - Billing Disposition and Condition Condition: STABLE Disposition: Home
[2018-10-27 13:16] LABS: Influenza A Molecular NEGATIVE (Negative); Influenza B Molecular NEGATIVE (Negative)
== END 2018-10-27 13:49 | disposition home or self-care (01) ==
LOC: UCCORT 12:19
DX: J11.1 Influenza due to unidentified influenza virus with other respiratory manifestations (principal); J45.909 Unspecified asthma, uncomplicated; Z88.1 Allergy status to other antibiotic agents; Z87.891 Personal history of nicotine dependence
CPT/HCPCS: 87651; 99212; G0463

== ENCOUNTER 2019-04-30 12:15 | Emergency (ER) | payer OTHER ==
--- NOTE | 2019-04-30 12:48 | UC ---
Throat Pain/Nasal Jimmy HPI - HPI Summary HPI Summary: 23-year-old female who is approximately 10 weeks gestation with a normal intrauterine according to her, who has had cold symptoms for approximately 2 weeks and over the past week has developed sinus pressure, green nasal coryza when she blows her nose and postnasal drainage. - History of Current Complaint Stated Complaint: SINUSES Time Seen by Provider: 04/30/19 12:43 Hx Obtained From: Patient Hx Last Menstrual Period: 09/24/18 ?: Yes - 10 weeks gestation Onset/Duration: Gradual Onset Severity: Mild Cough: None Associated Signs & Symptoms: Positive: Sinus Discomfort, Nasal Discharge - Allergies/Home Medications Allergies/Adverse Reactions: Allergies Allergy/AdvReac Type Severity Reaction Status Date / Time azithromycin AdvReac GI Upset Verified 10/27/18 12:38 PMH/Surg Hx/FS Hx/Imm Hx Previously Healthy: Yes Other History Of: Negative For: HIV, Hepatitis B, Hepatitis C - Surgical History Surgical History: Yes Surgery Procedure, Year, and Place: T&A. TUBES IN EARS - Family History Known Family History: Positive: None, Hypertension, Diabetes Family History: no cardio-vascular issues in family lineage - Social History Alcohol Use: None Substance Use Type: None Smoking Status (MU): Former Smoker Type: Cigarettes Amount Used/How Often: 1/2 PPD Length of Time of Smoking/Using Tobacco: 1 YR Have You Smoked in the Last Year: No When Did the Patient Quit Smoking/Using Tobacco: 12/2016 - Immunization History Most Recent Influenza Vaccination: Not the 2015/2016 Season Vaccination Up to Date: Yes Review of Systems All Other Systems Reviewed And Are Negative: Yes ENT: Positive: Nasal Discharge, Sinus Congestion, Sinus Pain/Tenderness Respiratory: Positive: Cough - Her cough has resolved over the past 2 weeks. Is Patient Immunocompromised?: No Physical Exam Triage Information Reviewed: Yes Appearance: Well-Appearing, No Pain Distress, Well-Nourished Vital Signs Reviewed: Yes Eyes: Positive: Conjunctiva Clear ENT: Positive: Nasal congestion, Nasal drainage - Some clear nasal coryza and some purulent nasal coryza., TMs normal, Sinus tenderness, Uvula midline Neck: Positive: Supple, Nontender, No Lymphadenopathy Respiratory: Positive: Lungs clear, Normal breath sounds, No respiratory distress, No accessory muscle use Cardiovascular: Positive: RRR, No Murmur, Pulses Normal, Brisk Capillary Refill Musculoskeletal: Positive: Strength Intact, ROM Intact Neurological: Positive: Alert, Muscle Tone Normal Psychological Exam: Normal Skin Exam: Normal Throat Pain/Nasal Course/Dx - Course Course Of Treatment: Patient is comfortable here. We talked about waiting to start the antibiotic and giving herself 2 or 3 more days if she has improvement in the sinus symptoms then she does not need to start the antibiotic. Patient is agreeable to this wait and see prescription. - Differential Dx/Diagnosis Provider Diagnosis: Sinusitis Discharge - Sign-Out/Discharge Documenting (check all that apply): Patient Departure All imaging exams completed and their final reports reviewed: No Studies - Discharge Plan Condition: Fair Disposition: HOME Prescriptions: Amoxicillin PO (*) [Amoxicillin 875 MG (*)] 875 mg PO BID 10 Days #20 tab Patient Education Materials: Sinusitis (ED) Referrals: Renetta Mcelroy MD [Primary Care Provider] - Additional Instructions: Increase fluids, you may wait 2 or 3 days to start the antibiotic and if you have an improvement in the symptoms then you do not need to start it. Definite follow-up with your primary care provider if no improvement in 1 week. - Billing Disposition and Condition Condition: FAIR Disposition: Home
[2019-04-30 13:01] VITALS: BP 106/68
== END 2019-04-30 13:06 | disposition home or self-care (01) ==
LOC: UCCORT 12:15
DX: O99.511 Diseases of the respiratory system complicating pregnancy, first trimester (principal); J32.9 Chronic sinusitis, unspecified; Z3A.10 10 weeks gestation of pregnancy; Z87.891 Personal history of nicotine dependence
CPT/HCPCS: 99212; G0463

== ENCOUNTER 2019-06-11 09:07 | Emergency (ER) | payer OTHER ==
[2019-06-11 09:45] VITALS: BP 110/64
[2019-06-11] MEDS ORDERED: Acetaminophen TAB* 325 MG PO ONE (09:59)
--- NOTE | 2019-06-11 10:01 | UC ---
Throat Pain/Nasal Jimmy HPI - HPI Summary HPI Summary: Patient is a 23-year-old female, at 16 weeks, here with a sore throat. Patient's had one day of sore throat, nasal congestion, sinus pain. Patient's had no fever, chills, vomiting, diarrhea, neck stiffness, ear pain. Patient has pain when she swallows but is still able to swallow. Patient is up-to-date on vaccines. Patient took NyQuil last night with little relief. Medications reviewed - History of Current Complaint Chief Complaint: UCGeneralIllness Stated Complaint: SORE THROAT/HEADACHE Time Seen by Provider: 06/11/19 09:47 Hx Obtained From: Patient Hx Last Menstrual Period: 09/24/18 ?: Yes Onset/Duration: Gradual Onset Pain Intensity: 8 - Allergies/Home Medications Allergies/Adverse Reactions: Allergies Allergy/AdvReac Type Severity Reaction Status Date / Time azithromycin AdvReac GI Upset Verified 06/11/19 09:45 PMH/Surg Hx/FS Hx/Imm Hx Previously Healthy: Yes Other History Of: Negative For: HIV, Hepatitis B, Hepatitis C - Surgical History Surgical History: Yes Surgery Procedure, Year, and Place: T&A. TUBES IN EARS - Family History Known Family History: Positive: None, Hypertension, Diabetes Family History: no cardio-vascular issues in family lineage - Social History Alcohol Use: None Substance Use Type: None Smoking Status (MU): Former Smoker Type: Cigarettes Amount Used/How Often: 1/2 PPD Length of Time of Smoking/Using Tobacco: 1 YR Have You Smoked in the Last Year: No When Did the Patient Quit Smoking/Using Tobacco: 12/2016 - Immunization History Most Recent Influenza Vaccination: Not the 2015/2016 Season Vaccination Up to Date: Yes Review of Systems All Other Systems Reviewed And Are Negative: Yes Constitutional: Negative: Fever, Chills Eyes: Negative: Drainage, Eye Redness ENT: Positive: Sore Throat, Nasal Discharge, Sinus Congestion. Negative: Ear Ache Respiratory: Negative: Shortness Of Breath, Cough Cardiovascular: Negative: Chest Pain Gastrointestinal: Negative: Abdominal Pain, Vomiting, Diarrhea, Nausea Genitourinary: Negative: Dysuria Physical Exam - Summary Physical Exam Summary: Vital Signs Reviewed: Yes A+Ox3, no distress Eyes: Conjunctiva Clear, PERRL. EOM intact and full ENT: Hearing grossly normal TM x 2 clear, moist, uvula midline, no exudate, no erythema Neck: Anterior cervical lymphadenopathy Respiratory: Positive: No respiratory distress, No accessory muscle use + CTA throughout no w/r Cardiovascular: RRR nl s1, s2 no m/r CBT <2 sec abd soft + BS nt/nd no guarding, no distension Musculoskeletal Exam: SPARKS x 4 without difficulty Strength Intact, ROM Intact Neurological: Positive: Alert, + sensation throughout Psychological: Positive: Normal Response To Family Skin: no rash, no ecchymosis Triage Information Reviewed: Yes Vital Signs: Initial Vital Signs Temp 98.2 F 06/11/19 09:41 Pulse 85 06/11/19 09:41 Resp 16 06/11/19 09:41 BP 110/64 06/11/19 09:41 Pulse Ox 98 06/11/19 09:41 Throat Pain/Nasal Course/Dx - Course Course Of Treatment: Patient is here strep pharyngitis. Patient had a positive rapid strep test. Patient has no evidence of deep space neck infection on exam. Patient was discharged with amoxicillin and instructions to take Tylenol for pain. - Differential Dx/Diagnosis Provider Diagnosis: Strep pharyngitis Discharge ED - Sign-Out/Discharge Documenting (check all that apply): Patient Departure All imaging exams completed and their final reports reviewed: No - Discharge Plan Condition: Stable Disposition: HOME Prescriptions: Amoxicillin PO (*) [Amoxicillin 875 MG (*)] 875 mg PO BID 10 Days #20 tab Patient Education Materials: Strep Throat (ED) Referrals: Renetta Mcelroy MD [Primary Care Provider] - Additional Instructions: Please stay hydrated Please drink warm tea with honey for her throat Please take antibiotics as prescribed Please take Tylenol as needed for pain Please return if you have inability to swallow, worsening fever, worsening symptoms. - Billing Disposition and Condition Condition: STABLE Disposition: Home
[2019-06-11] MEDS ORDERED: Dexamethasone TAB* 4 MG PO ONE (10:16)
== END 2019-06-11 10:28 | disposition home or self-care (01) ==
LOC: UCCORT 09:07
DX: J02.0 Streptococcal pharyngitis (principal); Z88.1 Allergy status to other antibiotic agents; Z87.891 Personal history of nicotine dependence; Z96.22 Myringotomy tube(s) status
CPT/HCPCS: 87651; 99212; A9270-GY; G0463; J8540

== ENCOUNTER 2019-10-10 14:43 | Emergency (ER) | payer OTHER ==
--- NOTE | 2019-10-10 16:11 | UC ---
Respiratory Complaint HPI - HPI Summary HPI Summary: 6 days of morris, sinus pressure, sinus congestion. pt is . has not tried meds. nothing makes it better/worse. no sick contacts - History of Current Complaint Chief Complaint: UCRespiratory Stated Complaint: SINUS COMPLAINT Time Seen by Provider: 10/10/19 16:07 Hx Obtained From: Patient Hx Last Menstrual Period: 09/24/18 Aggravating Factors: Nothing Alleviating Factors: Nothing - Allergies/Home Medications Allergies/Adverse Reactions: Allergies Allergy/AdvReac Type Severity Reaction Status Date / Time azithromycin AdvReac GI Upset Verified 10/10/19 16:12 PMH/Surg Hx/FS Hx/Imm Hx Previously Healthy: Yes Other History Of: Negative For: HIV, Hepatitis B, Hepatitis C - Surgical History Surgical History: Yes Surgery Procedure, Year, and Place: T&A. TUBES IN EARS - Family History Known Family History: Positive: None, Hypertension, Diabetes Family History: no cardio-vascular issues in family lineage - Social History Alcohol Use: None Substance Use Type: None Smoking Status (MU): Former Smoker Type: Cigarettes Amount Used/How Often: 1/2 PPD Length of Time of Smoking/Using Tobacco: 1 YR Have You Smoked in the Last Year: No When Did the Patient Quit Smoking/Using Tobacco: 12/2016 - Immunization History Most Recent Influenza Vaccination: Not the 2015/2016 Season Vaccination Up to Date: Yes Review of Systems All Other Systems Reviewed And Are Negative: Yes Constitutional: Negative: Fever Skin: Negative: Rash, Bruising Eyes: Positive: Photophobia ENT: Positive: Nasal Discharge, Sinus Congestion, Sinus Pain/Tenderness. Negative: Sore Throat Respiratory: Negative: Shortness Of Breath, Cough Cardiovascular: Positive: Negative Gastrointestinal: Negative: Vomiting, Diarrhea, Nausea Neurological: Negative: Headache Physical Exam Triage Information Reviewed: Yes Appearance: Well-Appearing Vital Signs Reviewed: Yes Eyes: Positive: Conjunctiva Clear ENT: Positive: Pharynx normal, TMs normal, Uvula midline. Negative: Sinus tenderness Neck: Positive: Supple Respiratory Exam: Normal Cardiovascular Exam: Normal Neurological: Positive: Alert Skin: Negative: Rashes Respiratory Course/Dx - Course Course Of Treatment: Viral sinusitis in a pt. w/ good vitals. has remained afebrile. exam unremarkable. self limiting. no indication for antibx. - Differential Dx/Diagnosis Differential Diagnosis/HQI/PQRI: Sinusitis, Other Provider Diagnosis: Viral sinusitis Discharge ED - Sign-Out/Discharge Documenting (check all that apply): Patient Departure All imaging exams completed and their final reports reviewed: No Studies - Discharge Plan Condition: Good Disposition: HOME Patient Education Materials: Sinusitis (ED) Referrals: Renetta Mcelroy MD [Primary Care Provider] - Additional Instructions: This is viral and will slowly go away on its own. - Billing Disposition and Condition Condition: GOOD Disposition: Home - Attestation Statements Provider Attestation: I was available for consult. This patient was seen by the DAVE. The patient was not presented to , seen by or examined by -Wei Alaniz MD
[2019-10-10 16:12] VITALS: BP 109/58
== END 2019-10-10 16:29 | disposition home or self-care (01) ==
LOC: UCCORT 14:43
DX: O99.519 Diseases of the respiratory system complicating pregnancy, unspecified trimester (principal); J32.9 Chronic sinusitis, unspecified; B97.89 Other viral agents as the cause of diseases classified elsewhere; Z87.891 Personal history of nicotine dependence; Z88.1 Allergy status to other antibiotic agents
CPT/HCPCS: 99211; G0463